=== PATIENT | male | born 1985 | race Caucasian/White ===

== ENCOUNTER 2018-11-26 08:00 | Outpatient (CLI) | payer OTHER ==
[~2018-11-26 08:00] MED LIST: INTESTINEX1 CA1 PO; ZANTAC150 MG PO
== END 2018-11-26 10:30 | disposition home or self-care (01) ==
LOC: LAB 08:00
DX: I10 Essential (primary) hypertension (principal)

== ENCOUNTER 2018-11-26 08:59 | Outpatient (CLI) | payer OTHER | END 2018-11-26 15:00 | disposition home or self-care (01) | LOC: SONOGRAMA 08:59 → MAMO-SONO 09:15 → SONOGRAMA 15:00 | DX: N50.89 Other specified disorders of the male genital organs (principal) ==